=== PATIENT | female | born 1945 | race Caucasian/White ===

== ENCOUNTER 2018-03-24 14:41 | Emergency (ER) | payer MEDICARE, OTHER | END 2018-03-24 15:52 | disposition home or self-care (01) | LOC: M ED 14:41 | DX: J32.9 Chronic sinusitis, unspecified (principal); R05 Cough; J44.9 Chronic obstructive pulmonary disease, unspecified; I25.2 Old myocardial infarction; F17.200 Nicotine dependence, unspecified, uncomplicated | CPT/HCPCS: 71046 ==